=== PATIENT | female | born 1980 | race African-American/Black ===

== ENCOUNTER 2016-08-08 16:23 | Emergency (ER) | payer OTHER ==
[~2016-08-08] VITALS: Ht 165.1 cm; Wt 75.0 kg
[2016-08-08 16:26] VITALS: BP 133/92; PULSE 70; RESP 14; TEMP 98.3; O2SAT 97
== END 2016-08-08 18:15 | disposition left against medical advice (07) ==
LOC: NED 16:23
DX: O46.91 Antepartum hemorrhage, unspecified, first trimester (principal); Z3A.11 11 weeks gestation of pregnancy; Z53.21 Procedure and treatment not carried out due to patient leaving prior to being seen by health care provider
CPT/HCPCS: 99281